=== PATIENT | male | born 2000 | race Two or more races ===

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

== ENCOUNTER 2022-03-08 16:28 | Emergency (ER) | payer MEDICAID, OTHER ==
[~2022-03-08] VITALS: Ht 175.3 cm; Wt 106.6 kg
[2022-03-08 17:25] VITALS: BP 152/87
[2022-03-08] MEDS ORDERED: IBUPROFEN 800 MG TAB PO ONE (17:30)
[2022-03-08] MEDS ORDERED: IBUP800T27 PO (17:54)
== END 2022-03-08 18:03 | disposition home or self-care (01) ==
LOC: ER 16:28
DX: S39.012A Strain of muscle, fascia and tendon of lower back, initial encounter (principal); V49.9XXA Car occupant (driver) (passenger) injured in unspecified traffic accident, initial encounter; Y93.89 Activity, other specified; Y92.89 Other specified places as the place of occurrence of the external cause; Y99.8 Other external cause status
CPT/HCPCS: 72100